=== PATIENT | male | born 1975 | race Caucasian/White ===

== ENCOUNTER 2016-07-16 18:57 | Emergency (ER) | payer BC, OTHER ==
[2016-07-16 19:04] VITALS: TEMP 97.5; BMI 29.4
[2016-07-16] MEDS ORDERED: ONDANSETRON HCL 4 MG/2 ML VIAL IV ONE (19:14)
[2016-07-16] MEDS ORDERED: MORPHINE 4 MG/ML INJECTION IV ONE (19:14)
--- NOTE | 2016-07-16 19:17 | EDPRACDOC ---
<Marilin Gomez Efrain - Last Filed: 07/16/16 21:04> - General Information Information Source: Patient, Family Mode of Arrival:: Car - History of Present Illness Onset: 3 DAYS HPI: C/o abscess on left knee x 3 days, with redness and swelling. Location: Reports: Extremity (left knee) Last Tetanus: No Prior Abscess: Reports: Different Pain: Reports: Severe Quality: Reports: Painful, Red <Walter Betancourt - Last Filed: 07/17/16 03:48> - General Information Chief Complaint: Wound Stated Complaint: LT KNEE ABSCESS LIKE AREA Time Seen by Provider: 07/16/16 19:10 Home Medications: Home Medications Alprazolam [Xanax] 1 mg PO BID 08/26/14 Cyclobenzaprine HCl [Flexeril] 10 mg PO DAILY 07/16/16 Hydrocodone/Acetaminophen [Lortab 5-325 mg Tablet] 1 each PO Q4H PRN #15 tablet 07/16/16 Oxycodone HCl/Acetaminophen [Percocet 10-325 mg Tablet] 1 tab PO QID 07/16/16 Sulfamethoxazole/Trimethoprim [Bactrim Ds Tablet] 1 tab PO BID #14 tab 07/16/16 Testosterone Cypionate [Depo-Testosterone] 200 mg IM .[id number] 07/16/16 Allergies/Adverse Reactions: Allergies Allergy/AdvReac Type Severity Reaction Status Date / Time codeine Allergy Nausea only Verified 08/26/14 08:31 ED Past Medical History - History Reviewed Yes Nurses notes reviewed and agree except as marked - Patient Medical History Respiratory History: Reports: Asthma, COPD GI/ History: Reports: Kidney Stones Psychological History: Reports: Anxiety. Denies: Depression Systemic History: Denies: Cancer - Family Medical History Reports: Diabetes, Cancer, Cardiac Disorders. Denies: Hypertension, Stroke - Social Medical History Smoking Status: Heavy tobacco smoker (5 or more cigarettes/day or daily pipe/ cigar) <Walter Betancourt - Last Filed: 07/17/16 03:48> EDM Review of Systems - Review of Systems ROS Negative Except as Marked: Yes All systems reviewed and were negative except as marked Musculoskeletal: Knee (left knee abscess) <Walter Betancourt - Last Filed: 07/17/16 03:48> - Physical Exam Last recorded Vital Signs: Last Vital Signs Temp 97.5 F 07/16/16 19:02 Pulse 104 07/16/16 19:02 Resp 20 07/16/16 19:02 BP 150/86 07/16/16 19:02 Pulse Ox 100 07/16/16 19:02 Oxygen Pulse Oxygen Saturation 100 O2 Device Room Air Oxygen Flow Rate Fraction of Inspired Oxygen ( FIO2) <Marilin Gomez - Last Filed: 07/16/16 21:04> - Physical Exam Constitutional: Alert, Agitated Oriented to: Time, Person, Place Last recorded Vital Signs: Last Vital Signs Temp 97.5 F 07/16/16 19:02 Pulse 104 07/16/16 19:02 Resp 20 07/16/16 19:02 BP 150/86 07/16/16 19:02 Pulse Ox 100 07/16/16 19:02 Oxygen Pulse Oxygen Saturation 100 O2 Device Room Air Oxygen Flow Rate Fraction of Inspired Oxygen ( FIO2) - HEENT Head: Normal Eye Exam: negative: Conjunctival Injection, Scleral Icterus Oropharynx: negative: Drooling TMJ: Normal Nose: No Symptoms Reported Neck: Normal - Respiratory/Cardiovascular Respiratory: Normal - CTA Cardiovascular: Normal - GI Tenderness: Non tender - Musculoskeletal Back: Normal Extremities: Normal - Integumentary Skin: Normal - Neurologic Mood Description: Agitated Thought: Coherent Perception: Normal <Walter Betancourt - Last Filed: 07/17/16 03:48> ED Abscess/Mass Exam - Integumentary Skin: Warm Mass: Red, Tender, Warm, Fluctuant, Local Cellulitis <Walter Betancourt - Last Filed: 07/17/16 03:48> ED Procedures - Incision and Drainage Informed of risks, benefits and alternatives described.: Yes Informed Consent Signed: Verbal Site: LEFT KNEE Indication: Painful Mass Anesthetic: Lidocaine Prep: Betadine Blade Size: 11 <Marilin Gomez - Last Filed: 07/16/16 21:04> Decision Time to Discharge: 21:05 - Departure Yes I personally saw and evaluated the patient. Disposition: Home Education/Counseling Given To: Patient Education/Counseling Given Regarding: Diagnosis, Treatment, Follow Up <Marilin Gomez - Last Filed: 07/16/16 21:04> <Walter Betancourt - Last Filed: 07/17/16 03:48> - Departure Condition: Fair Final Diagnosis: Abscess, LEFT KNEE CELLULITIS WITH LYMPHANGITIS Instructions: MRSA (Methicillin Resistant Staphylococcus Aureus) (ED) Referrals: Lorenzo Sherman MD [Primary Care Provider] - One Week Prescriptions: Hydrocodone/Acetaminophen [Lortab 5-325 mg Tablet] 1 each PO Q4H PRN #15 tablet PRN Reason: Pain Sulfamethoxazole/Trimethoprim [Bactrim Ds Tablet] 1 tab PO BID #14 tab
[2016-07-16] MEDS ORDERED: Lidocaine 2%-Epinephrine 1:100,000 20ml vial INF ONE (19:19)
[2016-07-16] MEDS ORDERED: DIPHTHERIA AND TETANUS (ADULT) 0.5 ML SYR IM ONE (19:20)
[2016-07-16] MEDS: LORAZEPAM 2 MG/ML VIAL IV ONE ×2 (19:30→19:37)
[2016-07-16] MEDS ORDERED: ALPRAZOLAM 0.5 MG TAB PO ONE (19:49)
[2016-07-16] MEDS ORDERED: HYDROmorphone 1 MG INJECTION IV ONE ×2 (20:19→21:38)
[2016-07-16 22:10] VITALS: BP 118/70; PULSE 80
== END 2016-07-16 22:08 | disposition home or self-care (01) ==
LOC: ED 18:57
DX: L02.416 Cutaneous abscess of left lower limb (principal); L03.116 Cellulitis of left lower limb; I89.1 Lymphangitis; Z23 Encounter for immunization
CPT/HCPCS: 10060; 90471; 90714; 96365; 96375; 96376; 99284; J1170; J2270; J2405; J3370; J3490; J7060; J2060